=== PATIENT | female | born 1970 | race Hispanic/Latino ===

== ENCOUNTER 2018-06-14 16:35 | Emergency (ER) | payer BC ==
[2018-06-14 17:15] LABS: #Basophils 0.1 thou/uL (0.0-0.2); #Eosinphils 0.1 thou/uL (0.0-0.7); #Lymphocytes 2.2 thou/uL (1.20-3.40); #Monocytes 0.4 thou/uL (0.11-0.59); #Neutrophils 4.5 thou/uL (1.40-6.50); %Eosinophils 0.8 % (0.0-10.0); %Lymphocytes 30.6 % (21.0-51.0); %Monocytes 5.4 % (0.0-10.0); %Neutrophils 62.1 % (42.0-75.0); Mean Corpuscular HGB CONC 34.5 g/dL (32.0-36.0); Mean Corpuscular Hemoglobin 30.3 pg (27.0-31.0); Mean Corpuscular Volume 87.8 fL (78.0-98.0); Mean Platelet Volume 6.5 fL (7.4-10.4); Platelet Count 356 thou/uL (130-400); RBC Distribution Width 12.2 % (11.5-14.5); Red Blood Cell (RBC) Count 4.27 mill/uL (4.20-5.40); White Blood Cell (WBC) Count 7.2 thou/uL (4.8-10.8)
[2018-06-14 17:38] LABS: Bilirubin Small (Negative); Blood, Urine Negative (Negative); Clarity CLEAR (Clear); Glucose, Urine (Dipstick) Negative (Negative); Leukocyte Small (Negative); Nitrite Negative (Negative); Protein, Urine (Dipstick) Negative (Neg-Trace); Specific Gravity, Urine 1.027 (1.002-1.036); pH, Urine 6.5 (5.0-9.0)
[2018-06-14 17:39] LABS: Pregnancy Test - Urine (BHCG) Negative (Negative); Pregu Control Background? CLEAR/WHITE (CLR/WHITE); Pregu Control Bar Appear? YES (CONTROL BAR); Specific Gravity 1.027 (1.002-1.036)
[2018-06-14 17:40] LABS: Bacteria/HPF Rare-Few HPF (None Seen); Hyaline Casts/LPF 0-3 HYALINE CAST LPF (0-3 Hyaline); Pathc Cast-AUWi Flag 0.43 (0-2.49)
[2018-06-14 17:43] LABS: ALT (SGPT) 9 U/L (8-55); AST (SGOT) 13 U/L (5-34); Albumin 3.9 g/dL (3.5-5.0); Alkaline Phosphatase 102 U/L (40-150); Anion Gap 11 mmol/L (10-20); BUN (Urea Nitrogen) 13 mg/dL (7.0-18.7); Bilirubin, Total 0.3 mg/dL (0.2-1.2); Calc. Creatinine Clearance 0 mL/min (70-130); Calcium 8.5 mg/dL (7.8-10.44); Carbon Dioxide 25 mmol/L (22-29); Chloride 106 mmol/L (98-107); Estimated GFR-MDRD Greater than 90; Globulin 3.4 g/dL (2.4-3.5); Glucose 84 mg/dL (70-105); Lipase 19 U/L (8-78); Potassium 3.4 mmol/L (3.5-5.1); Protein, Total 7.3 g/dL (6.0-8.3); Sodium 139 mmol/L (136-145)
== END 2018-06-14 18:15 | disposition home or self-care (01) ==
LOC: ERS 16:35
DX: R10.9 Unspecified abdominal pain (principal)
CPT/HCPCS: 36415; 80053; 81003; 81015; 81025; 83690; 85025; 99284

== ENCOUNTER 2018-11-13 02:35 | Emergency (ER) | payer BC ==
[2018-11-13] MEDS ORDERED: Ketorolac Tromethamine 30 MG/ML VIAL ONE (02:41)
[2018-11-13 02:57] LABS: #Basophils 0.1 thou/uL (0.0-0.2); #Eosinphils 0.1 thou/uL (0.0-0.7); #Lymphocytes 2.6 thou/uL (1.20-3.40); #Monocytes 0.4 thou/uL (0.11-0.59); #Neutrophils 4.5 thou/uL (1.40-6.50); %Basophils 0.7 % (0.0-1.0); %Eosinophils 1.3 % (0.0-10.0); %Lymphocytes 34.3 % (21.0-51.0); %Monocytes 5.4 % (0.0-10.0); %Neutrophils 58.3 % (42.0-75.0); Hemoglobin 12.8 g/dL (12.0-16.0); Mean Corpuscular Hemoglobin 28.5 pg (27.0-31.0); Mean Corpuscular Volume 86.4 fL (78.0-98.0); Mean Platelet Volume 6.5 fL (7.4-10.4); Platelet Count 369 thou/uL (130-400); RBC Distribution Width 12.4 % (11.5-14.5); Red Blood Cell (RBC) Count 4.49 mill/uL (4.20-5.40); White Blood Cell (WBC) Count 7.6 thou/uL (4.8-10.8)
[2018-11-13 03:17] LABS: ALT (SGPT) 10 U/L (8-55); AST (SGOT) 14 U/L (5-34); Alkaline Phosphatase 111 U/L (40-150); Anion Gap 10 mmol/L (10-20); BUN (Urea Nitrogen) 12 mg/dL (7.0-18.7); Bilirubin, Total 0.6 mg/dL (0.2-1.2); Calc. Creatinine Clearance 0 mL/min (70-130); Calcium 9.2 mg/dL (7.8-10.44); Carbon Dioxide 26 mmol/L (22-29); Chloride 109 mmol/L (98-107); Estimated GFR-MDRD 86; Globulin 3.5 g/dL (2.4-3.5); Glucose 104 mg/dL (70-105); Potassium 3.1 mmol/L (3.5-5.1); Protein, Total 7.5 g/dL (6.0-8.3); Sodium 142 mmol/L (136-145)
[2018-11-13] MEDS ORDERED: Potassium Chloride 20 MEQ TAB ONE (03:29)
[2018-11-13 04:10] LABS: Bilirubin Negative (Negative); Blood, Urine Moderate (Negative); Clarity CLOUDY (Clear); Glucose, Urine (Dipstick) Negative (Negative); Leukocyte Negative (Negative); Nitrite Negative (Negative); Protein, Urine (Dipstick) Negative (Neg-Trace); Specific Gravity, Urine 1.021 (1.002-1.036); Urobilinogen 0.2 mg/dL (0.2-1.0)
[2018-11-13 04:13] LABS: Bacteria/HPF None Seen HPF (None Seen); Hyaline Casts/LPF 0-3 HYALINE CAST LPF (0-3 Hyaline); Pathc Cast-AUWi Flag 0.27 (0-2.49)
--- NOTE | 2018-11-13 07:25 | CT ---
CT ABDOMEN AND PELVIS NONCONTRAST: Date: 11/13/18 INDICATION: New onset right flank pain. Reference made to 03/30/12 CT exam. FINDINGS: There is a grossly stable in volume mixed density left adrenal mass approximately 2.1 cm. Finding has become more dense comparing to 03/30/12 exam, although has not significantly enlarged. There is evid ence of prior cholecystectomy. Heterogeneity of the unenhanced hepatic parenchyma could relate to a c omponent of hepatic steatosis. There is punctate, nonobstructing right nephrolithiasis. No free air. There is a ventral fat-containing umbilical hernia. A small cyst of the anterior right hemipelvis may relate to an adnexal cyst, although is incompletely characterized. No acute osseous abnormality. IMPRESSION: 1. Non-obstructive punctate right nephrolithiasis. 2. Stable sized left adrenal mass from 2012 exam, favoring benign process. 3. Hypodensity of the anterior right hemipelvis may relate to an ovarian cyst, which is incompletely evaluated. This measures 2.4 cm in diameter. Recommend pelvic ultrasound to further evaluate, given patient's age. POS: [id number]
== END 2018-11-13 04:32 | disposition home or self-care (01) ==
LOC: ERS 02:35
DX: N20.0 Calculus of kidney (principal); Z87.442 Personal history of urinary calculi
CPT/HCPCS: 74176; 80053; 81003; 81015; 85025; 96361; 96374; J1885

== ENCOUNTER 2018-12-21 04:07 | Emergency (ER) | payer BC ==
[2018-12-21] MEDS ORDERED: Ketorolac Tromethamine 30 MG/ML VIAL ONE (04:21)
[2018-12-21 04:39] LABS: #Basophils 0.1 thou/uL (0.0-0.2); #Lymphocytes 2.9 thou/uL (1.20-3.40); #Monocytes 0.4 thou/uL (0.11-0.59); #Neutrophils 5.6 thou/uL (1.40-6.50); %Basophils 0.6 % (0.0-1.0); %Eosinophils 0.4 % (0.0-10.0); %Lymphocytes 32.1 % (21.0-51.0); %Monocytes 4.7 % (0.0-10.0); %Neutrophils 62.2 % (42.0-75.0); Hemoglobin 12.5 g/dL (12.0-16.0); Mean Corpuscular Hemoglobin 27.6 pg (27.0-31.0); Mean Corpuscular Volume 86.1 fL (78.0-98.0); Mean Platelet Volume 6.2 fL (7.4-10.4); Platelet Count 357 thou/uL (130-400); RBC Distribution Width 12.9 % (11.5-14.5); Red Blood Cell (RBC) Count 4.53 mill/uL (4.20-5.40)
[2018-12-21 04:40] LABS: Pregnancy Test - Urine (BHCG) Negative (Negative); Pregu Control Background? CLEAR/WHITE (CLR/WHITE); Pregu Control Bar Appear? YES (CONTROL BAR); Specific Gravity 1.027 (1.002-1.036)
[2018-12-21 04:43] LABS: Bacteria/HPF None Seen HPF (None Seen); Bilirubin Negative (Negative); Blood, Urine 3+ (Negative); Clarity Clear (Clear); Glucose, Urine (Dipstick) Normal (Negative); Leukocyte Negative Leu/uL (Negative); Mucous/LPF 4+ LPF (<2+); Nitrite Negative (Negative); Protein, Urine (Dipstick) 10 mg/dL (Neg-Trace); RBC/HPF Greater than 50 HPF (0-3); WBC/HPF 0-3 HPF (0-3)
[2018-12-21 05:01] LABS: ALT (SGPT) 7 U/L (8-55); AST (SGOT) 12 U/L (5-34); Albumin 3.9 g/dL (3.5-5.0); Alkaline Phosphatase 106 U/L (40-150); Anion Gap 11 mmol/L (10-20); BUN (Urea Nitrogen) 15 mg/dL (7.0-18.7); Bilirubin, Total 0.5 mg/dL (0.2-1.2); Calc. Creatinine Clearance 0 mL/min (70-130); Carbon Dioxide 24 mmol/L (22-29); Chloride 108 mmol/L (98-107); Estimated GFR-MDRD 87; Globulin 3.3 g/dL (2.4-3.5); Glucose 88 mg/dL (70-105); Potassium 3.8 mmol/L (3.5-5.1); Protein, Total 7.2 g/dL (6.0-8.3); Sodium 139 mmol/L (136-145)
--- NOTE | 2018-12-21 08:13 | ULT ---
PELVIC ULTRASOUND WITH GRAF SCALE AND DOPPLER COLOR FLOW IMAGING: COMPARISON: Comparison is made to recent CT exam November 13, 2018. CLINICAL HISTORY: Pelvic pain. FINDINGS: The uterus is surgically absent. The left ovary is not visualized. Within the right adnexa, there i s a lobular hypoechoic focus measuring up to approximately 3.3 cm in diameter. No significant international account manager al flow is seen by Doppler evaluation. Appearing separate from this finding there is right ovarian s troma which does contain flow by Doppler evaluation. The ovary measures approximately 2 cm. No free pelvic fluid. IMPRESSION: Right adnexal cystic structures up to approximately 3.3 cm. This appears separate from the adjacent right ovary by sonographic imaging. Recommend a 6-week followup pelvic ultrasound for continued asse ssment. CODE T POS: [id number]
== END 2018-12-21 07:20 | disposition home or self-care (01) ==
LOC: ERS 04:07
DX: N83.201 Unspecified ovarian cyst, right side (principal)
CPT/HCPCS: 36415; 76856; 80053; 81003; 81015; 81025; 85025; 96374; J1885

== ENCOUNTER 2020-11-14 12:40 | Day surgery (SDC) | payer BC ==
[2020-11-14] MEDS ORDERED: Ferumoxytol (NON ERSD) 510 MG in Sodium Chloride 0.9% 150 ML IVPB SCH (13:00)
[2020-11-14 13:14] VITALS: BP 103/54
== END 2020-11-14 15:31 | disposition home or self-care (01) ==
LOC: ONC/OP 12:40
PROVIDERS: ATTEND Family Medicine
DX: D50.0 Iron deficiency anemia secondary to blood loss (chronic) (principal); Z80.0 Family history of malignant neoplasm of digestive organs
CPT/HCPCS: 96365; J3490; Q0138

== ENCOUNTER → 2020-11-14 | Day surgery (SDC) | payer BC | LOC: ER/OP 10:42 → ERS 10:42 → EDSTATUS 15:33 | DX: D50.9 Iron deficiency anemia, unspecified (principal); Z80.0 Family history of malignant neoplasm of digestive organs ==

== ENCOUNTER 2021-02-18 15:50 | Outpatient (CLI) | payer BC | END 2021-02-18 15:51 | disposition home or self-care (01) | LOC: BICRAD 15:50 | PROVIDERS: ATTEND Family Medicine | DX: D50.9 Iron deficiency anemia, unspecified (principal) | CPT/HCPCS: 71046 ==

== ENCOUNTER 2021-09-04 09:30 | Inpatient (IN) | payer OTHER ==
[2021-09-04 11:12] VITALS: BMI 35.1
[2021-09-09] MEDS ORDERED: Levofloxacin 500 mg/D5W 100 ml Premix Bag ONE (06:14)
[2021-09-09] MEDS ORDERED: metroNIDAZOLE 500 MG in Premix Bag 1 BAG IVPB SCH (06:30)
[2021-09-09] MEDS ORDERED: Famotidine/PF 20 mg/2ml Vial ONE (06:47)
[2021-09-09] MEDS ORDERED: Fentanyl 100 MCG/2 ML VIAL ONE ×3 (06:47→10:56)
[2021-09-09] MEDS ORDERED: Bupivacaine 0.25% 10 ML VIAL ONE (06:54)
[2021-09-09] MEDS ORDERED: Lidocaine 1% w/Epinephrine 1:100K 20 ML VIAL ONE (06:54)
[2021-09-09] MEDS ORDERED: Midazolam HCl 2 mg/2 ml Vial ONE (07:14)
[2021-09-09] MEDS ORDERED: Rocuronium Bromide 10 MG/ML (10ML VIAL) ONE (07:18)
[2021-09-09] MEDS ORDERED: Ketorolac Tromethamine 30 MG/ML VIAL ONE (07:18)
[2021-09-09] MEDS ORDERED: Dexamethasone 20 MG/5 ML VIAL ONE (07:18)
[2021-09-09] MEDS ORDERED: Lidocaine 1% PF 5 ML VIAL ONE (07:18)
[2021-09-09] MEDS ORDERED: PROPOFOL 200 MG/20 ML VIAL ONE (07:18)
[2021-09-09] MEDS ORDERED: Ondansetron PF 4 MG/2 ML Vial ONE (07:18)
[2021-09-09] MEDS ORDERED: Bupivacaine HCl 0.5%/Epinephrine 1:200,000/PF 30 ml Vial ONE (07:18)
[2021-09-09] MEDS ORDERED: SUGAMMADEX SODIUM 200 MG/2 ML VIAL ONE (07:42)
[2021-09-09] MEDS ORDERED: HYDROmorphone 2 MG/ML VIAL SLOW IVP PRN (09:07)
[2021-09-09] MEDS ORDERED: Meperidine HCl/PF 25 MG/ML VIAL SLOW IVP PRN (09:07)
[2021-09-09] MEDS ORDERED: Promethazine HCl 25 MG/ML VIAL IVPB PRN (09:07)
[2021-09-09] MEDS ORDERED: Promethazine HCl 25 MG/ML VIAL IM PRN ×2 (09:07→10:01)
[2021-09-09] MEDS ORDERED: Ondansetron PF 4 MG/2 ML Vial IVP PRN (10:01)
[2021-09-09] MEDS ORDERED: hydrALAZINE 20 MG/ML VIAL SLOW IVP PRN (10:01)
[2021-09-09] MEDS ORDERED: D5 1/2 NS w/20 mEq KCL 1,000 ML ONE (11:31)
[2021-09-09] MEDS: Morphine 4 MG/ML VIAL SLOW IVP PRN ×3 (13:04→22:32)
[2021-09-09] MEDS: D5 1/2 NS w/20 mEq KCL 1,000 ML IV SCH ×2 (17:54→20:18)
[2021-09-09] MEDS: Iron, Sodium Ferric Gluconate 250 MG in Sodium Chloride 0.9% 250 ML 250 ML IVPB SCH (20:17)
[2021-09-09] MEDS: Famotidine 20 MG TAB PO SCH (20:17)
[2021-09-09] MEDS: Famotidine/PF 20 mg/2ml Vial SLOW IVP SCH (20:28)
[2021-09-10] MEDS: Morphine 4 MG/ML VIAL SLOW IVP PRN ×3 (04:38→21:30)
[2021-09-10] MEDS: D5 1/2 NS w/20 mEq KCL 1,000 ML IV SCH ×3 (04:44→21:49)
[2021-09-10 06:06] LABS: #Monocytes 0.5 thou/uL (0.11-0.59); #Neutrophils 13.6 thou/uL (1.40-6.50); %Basophils 0.1 % (0.0-1.0); %Eosinophils 0.1 % (0.0-10.0); %Lymphocytes 6.3 % (21.0-51.0); %Monocytes 3.5 % (0.0-10.0); %Neutrophils 90.1 % (42.0-75.0); Mean Corpuscular HGB CONC 29.9 g/dL (32.0-36.0); Mean Corpuscular Hemoglobin 22.7 pg (27.0-31.0); Mean Corpuscular Volume 75.9 fL (78.0-98.0); Platelet Count 407 thou/uL (130-400); RBC Distribution Width 15.4 % (11.5-14.5); Red Blood Cell (RBC) Count 4.42 mill/uL (4.20-5.40); White Blood Cell (WBC) Count 15.1 thou/uL (4.8-10.8)
[2021-09-10 06:31] LABS: Anion Gap 11 mmol/L (10-20); BUN (Urea Nitrogen) 5 mg/dL (9.8-20.1); Calc. Creatinine Clearance 120 mL/min (70-130); Calcium 8.5 mg/dL (7.8-10.44); Carbon Dioxide 21 mmol/L (22-29); Chloride 108 mmol/L (98-107); Glucose 132 mg/dL (70-105); Potassium 4.2 mmol/L (3.5-5.1); Sodium 136 mmol/L (136-145)
[2021-09-10] MEDS: Enoxaparin Sodium 40 MG/0.4 ML SYRINGE SC SCH (09:52)
[2021-09-10] MEDS: Famotidine 20 MG TAB PO SCH ×2 (09:52→21:16)
[2021-09-10] MEDS: Famotidine/PF 20 mg/2ml Vial SLOW IVP SCH ×2 (09:52→21:49)
[2021-09-10] MEDS: HYDROcodone/Acetaminophen 7.5/325 mg Tablet PO PRN ×3 (13:50→21:15)
[2021-09-10] MEDS: Iron, Sodium Ferric Gluconate 250 MG in Sodium Chloride 0.9% 250 ML 250 ML IVPB SCH (17:45)
[2021-09-11] MEDS: HYDROcodone/Acetaminophen 7.5/325 mg Tablet PO PRN ×4 (02:00→20:38)
[2021-09-11] MEDS: D5 1/2 NS w/20 mEq KCL 1,000 ML IV SCH ×4 (04:49→20:39)
[2021-09-11] MEDS: Famotidine 20 MG TAB PO SCH ×2 (09:46→20:38)
[2021-09-11] MEDS: Enoxaparin Sodium 40 MG/0.4 ML SYRINGE SC SCH (09:46)
[2021-09-11] MEDS ORDERED: Bisacodyl 10 MG SUPP PR PRN (10:12)
[2021-09-11] MEDS: Famotidine/PF 20 mg/2ml Vial SLOW IVP SCH ×2 (11:08→21:32)
[2021-09-12] MEDS: HYDROcodone/Acetaminophen 7.5/325 mg Tablet PO PRN ×2 (05:07→11:34)
[2021-09-12] MEDS: D5 1/2 NS w/20 mEq KCL 1,000 ML IV SCH ×2 (05:08→14:32)
[2021-09-12] MEDS: Enoxaparin Sodium 40 MG/0.4 ML SYRINGE SC SCH (09:04)
[2021-09-12] MEDS: Famotidine 20 MG TAB PO SCH (09:08)
[2021-09-12] MEDS: Famotidine/PF 20 mg/2ml Vial SLOW IVP SCH (09:09)
[2021-09-12] MEDS ORDERED: Nystatin Powder 15 GM BOT TOP PRN (10:41)
[2021-09-12 11:50] VITALS: BP 123/82; TEMP 98.2
== END 2021-09-12 14:15 | disposition home or self-care (01) | DRG 357 ==
LOC: SURG A 09-09 06:02
PROVIDERS: ADMIT Surgery; ATTEND Surgery
PROC: 0WJG4ZZ Inspection of Peritoneal Cavity, Percutaneous Endoscopic Approach (ICD-10-PCS; principal; 2021-09-09)
PROC: 0DJD8ZZ Inspection of Lower Intestinal Tract, Via Natural or Artificial Opening Endoscopic (ICD-10-PCS; 2021-09-09)
DX: C20 Malignant neoplasm of rectum (principal); K91.89 Other postprocedural complications and disorders of digestive system; K56.7 Ileus, unspecified; E66.9 Obesity, unspecified; D50.9 Iron deficiency anemia, unspecified; K63.5 Polyp of colon; Z53.8 Procedure and treatment not carried out for other reasons; Y83.8 Other surgical procedures as the cause of abnormal reaction of the patient, or of later complication, without mention of misadventure at the time of the procedure; Z90.710 Acquired absence of both cervix and uterus; Z98.84 Bariatric surgery status; Z90.49 Acquired absence of other specified parts of digestive tract; Z88.0 Allergy status to penicillin; Z68.35 Body mass index [BMI] 35.0-35.9, adult
CPT/HCPCS: 36415; 36416; 71260; 72197; 74018; 80048; 85025; J1100; J1650; J1885; J1956; J2250; J2270; J2405; J2704; J2916; J3010; J3480; J7050; S0020; S0028

== ENCOUNTER 2021-10-14 07:41 | Outpatient (CLI) | payer OTHER ==
[2021-10-14] MEDS ORDERED: Iopamidol 370 76% 100 ML VIAL ONE (09:19)
== END 2021-10-14 07:42 | disposition home or self-care (01) ==
LOC: CT 07:41
PROVIDERS: ATTEND Surgery
DX: C20 Malignant neoplasm of rectum (principal); D12.0 Benign neoplasm of cecum; E27.9 Disorder of adrenal gland, unspecified; K76.9 Liver disease, unspecified
CPT/HCPCS: 74177

== ENCOUNTER 2022-07-04 07:57 | Outpatient (CLI) | payer OTHER ==
[2022-07-04] MEDS ORDERED: Iopamidol-370 76% 500 ML 1 ML ONE (15:43)
== END 2022-07-04 07:58 | disposition home or self-care (01) ==
LOC: BICCT 07:57
PROVIDERS: ATTEND Internal Medicine Hematology & Oncology
DX: C19 Malignant neoplasm of rectosigmoid junction (principal); K76.89 Other specified diseases of liver; E27.8 Other specified disorders of adrenal gland
CPT/HCPCS: 71260; 74177

== ENCOUNTER 2023-05-06 07:53 | Outpatient (CLI) | payer OTHER ==
[2023-05-06] MEDS ORDERED: Iopamidol 370 76% 100 ML VIAL ONE (08:55)
== END 2023-05-06 07:54 | disposition home or self-care (01) ==
LOC: BICCT 07:53
PROVIDERS: ATTEND Internal Medicine Hematology & Oncology
DX: C20 Malignant neoplasm of rectum (principal); R91.1 Solitary pulmonary nodule; E27.8 Other specified disorders of adrenal gland; K76.0 Fatty (change of) liver, not elsewhere classified; Z90.49 Acquired absence of other specified parts of digestive tract; Z90.710 Acquired absence of both cervix and uterus
CPT/HCPCS: 71260; 74177

== ENCOUNTER 2023-08-07 09:12 | Day surgery (SDC) | payer OTHER ==
[2023-08-07] MEDS: Acetaminophen 500 MG TAB PO SCH (10:09)
[2023-08-07] MEDS ORDERED: Acetaminophen 500 MG TAB ONE (10:09)
[2023-08-07] MEDS: diphenhydrAMINE 25 MG CAP PO SCH (10:09)
[2023-08-07] MEDS ORDERED: diphenhydrAMINE 25 MG CAP ONE (10:09)
[2023-08-07 13:04] VITALS: BP 114/52; TEMP 98.2
== END 2023-08-07 13:16 | disposition home or self-care (01) ==
LOC: ONC/OP 09:12
PROVIDERS: ATTEND Internal Medicine Hematology & Oncology
DX: D64.9 Anemia, unspecified (principal); D69.6 Thrombocytopenia, unspecified
CPT/HCPCS: 36430; 86850; 86900; 86901; P9016

== ENCOUNTER → 2023-08-31 | Day surgery (SDC) | payer OTHER ==
[~2023-08-31] MED LIST: Lidocaine 1% PF 5 ML VIAL ONE; Lidocaine 1% w/Epinephrine 1:100K 20 ML VIAL ONE; Midazolam HCl 2 mg/2 ml Vial ONE; Sodium Bicarbonate 2.5 MEQ/5 ML SDV ONE; fentaNYL 50 mcg/mL 1 mL Vial ONE
[2023-08-31 09:07] VITALS: BMI 42.5
[2023-08-31 09:41] LABS: INR-International Normal Ratio 1.1; Prothrombin Time 14.7 sec (12.0-14.7)
[2023-08-31 09:42] LABS: PTT 30.7 sec (22.9-36.1)
== END ==
LOC: CT 08:13
PROVIDERS: ATTEND Internal Medicine Hematology & Oncology
PROC: 079T3ZX Drainage of Bone Marrow, Percutaneous Approach, Diagnostic (ICD-10-PCS; principal; 2023-08-31)
DX: C19 Malignant neoplasm of rectosigmoid junction (principal); D50.0 Iron deficiency anemia secondary to blood loss (chronic); D61.818 Other pancytopenia; F41.9 Anxiety disorder, unspecified; Z79.899 Other long term (current) drug therapy; Z88.0 Allergy status to penicillin
CPT/HCPCS: 38222; 77012; 85097; 85610; 85730; 88184; 88237; 88305; 88311; 88313; 88342; 99152; J2250; J3010

== ENCOUNTER 2023-10-29 11:38 | Day surgery (SDC) | payer OTHER ==
[2023-10-29] MEDS ORDERED: diphenhydrAMINE 25 MG CAP PO SCH (12:15)
[2023-10-29] MEDS: Acetaminophen 500 MG TAB PO SCH (12:52)
[2023-10-29] MEDS: Acetaminophen 500 MG TAB ONE (13:24)
[2023-10-29 17:16] VITALS: BP 105/87; TEMP 98.1
== END 2023-10-29 17:31 | disposition home or self-care (01) ==
LOC: ONC/OP 11:38
PROVIDERS: ATTEND Internal Medicine Hematology & Oncology
DX: D64.9 Anemia, unspecified (principal); D69.6 Thrombocytopenia, unspecified
CPT/HCPCS: 36430; 86850; 86900; 86901; P9016

== ENCOUNTER 2023-11-27 11:53 | Day surgery (SDC) | payer OTHER ==
[2023-11-27] MEDS ORDERED: diphenhydrAMINE 25 MG CAP PO SCH (12:15)
[2023-11-27] MEDS ORDERED: Acetaminophen 500 MG TAB ONE (12:43)
[2023-11-27] MEDS: Acetaminophen 500 MG TAB PO SCH (12:44)
[2023-11-27 15:56] VITALS: BP 102/53; TEMP 98.2
== END 2023-11-27 16:06 | disposition home or self-care (01) ==
LOC: ONC/OP 11:53
PROVIDERS: ATTEND Internal Medicine Hematology & Oncology
DX: D64.9 Anemia, unspecified (principal); D69.6 Thrombocytopenia, unspecified; Z88.0 Allergy status to penicillin
CPT/HCPCS: 36430; 86850; 86900; 86901; P9016

== ENCOUNTER 2023-12-04 10:08 | Day surgery (SDC) | payer OTHER ==
[2023-12-04] MEDS ORDERED: diphenhydrAMINE 25 MG CAP PO SCH (10:30)
[2023-12-04] MEDS ORDERED: Acetaminophen 500 MG TAB ONE (11:14)
[2023-12-04] MEDS: Acetaminophen 500 MG TAB PO SCH (11:15)
[2023-12-04 12:10] VITALS: TEMP 97.8
[2023-12-04 14:35] VITALS: BP 114/63
== END 2023-12-04 14:36 | disposition home or self-care (01) ==
LOC: ONC/OP 10:08
PROVIDERS: ATTEND Internal Medicine Hematology & Oncology
DX: D64.9 Anemia, unspecified (principal); D69.6 Thrombocytopenia, unspecified; Z88.0 Allergy status to penicillin
CPT/HCPCS: 36430; 86850; 86900; 86901; P9016

== ENCOUNTER 2023-12-11 13:04 | Day surgery (SDC) | payer OTHER ==
[2023-12-11] MEDS ORDERED: diphenhydrAMINE 25 MG CAP ONE (14:00)
[2023-12-11] MEDS ORDERED: Acetaminophen 500 MG TAB ONE (14:00)
[2023-12-11] MEDS: diphenhydrAMINE 25 MG CAP PO SCH (14:01)
[2023-12-11] MEDS: Acetaminophen 500 MG TAB PO SCH (14:01)
[2023-12-11 15:47] VITALS: BP 120/69; TEMP 97.9
== END 2023-12-11 15:48 | disposition home or self-care (01) ==
LOC: ONC/OP 13:04
PROVIDERS: ATTEND Internal Medicine Hematology & Oncology
DX: D64.9 Anemia, unspecified (principal); D69.6 Thrombocytopenia, unspecified; Z88.0 Allergy status to penicillin
CPT/HCPCS: 36430; 86850; 86900; 86901; P9035

== ENCOUNTER 2024-06-29 01:33 | Emergency (ER) | payer OTHER | END 2024-06-29 03:20 | disposition home or self-care (01) | LOC: ERS 01:33 | DX: R04.0 Epistaxis (principal) | CPT/HCPCS: 99282 ==

== ENCOUNTER 2025-02-28 19:33 | Emergency (ER) | payer OTHER ==
[~2025-02-28 19:33] MED LIST changes: +Iopamidol-370 76% 500 ML MDV (1 ML CHARGE) ONE; -Lidocaine 1% PF 5 ML VIAL ONE; -Lidocaine 1% w/Epinephrine 1:100K 20 ML VIAL ONE; -Midazolam HCl 2 mg/2 ml Vial ONE; -Sodium Bicarbonate 2.5 MEQ/5 ML SDV ONE; -fentaNYL 50 mcg/mL 1 mL Vial ONE
[2025-02-28] MEDS ORDERED: Dextrose 50% Abboject 50 ML SYRINGE ONE (19:40)
[2025-02-28] MEDS ORDERED: Cefepime 2 GM VIAL ONE (19:45)
[2025-02-28] MEDS ORDERED: Hydrocortisone Sod Succ/PF 100 mg/2 ml Vial ONE (19:45)
[2025-02-28 20:11] LABS: INR-International Normal Ratio 2.2; Prothrombin Time 24.9 sec (12.0-14.7)
[2025-02-28 20:12] LABS: ALT (SGPT) 9 U/L (Less than 34); AST (SGOT) 32 U/L (11-34); Albumin 1.5 g/dL (3.1-4.5); Alkaline Phosphatase 262 U/L (40-110); Anion Gap 22 mmol/L (10-20); BUN (Urea Nitrogen) 21 mg/dL (9.8-20.1); Bilirubin, Total 2.7 mg/dL (0.3-1.2); Calc. Creatinine Clearance 0 mL/min (70-130); Calcium 7.8 mg/dL (7.8-10.44); Carbon Dioxide 19 mmol/L (22-29); Chloride 96 mmol/L (98-107); Globulin 2.8 g/dL (2.4-3.5); Glucose 105 mg/dL (70-105); Lipase 12 U/L (8-78); PTT 51.7 sec (22.9-36.1); Potassium 3.9 mmol/L (3.5-5.1); Sodium 133 mmol/L (136-145)
[2025-02-28 20:13] LABS: Base Excess -16.8 mEq/L (-2.0 to +3.0); Chloride (VBG) 127 mmol/L (98-106); Hematocrit-VBG 10 % (36.0-47.0); Sodium 140 mmol/L (133-146)
[2025-02-28 20:20] LABS: Hematocrit 27.5 % (36.0-47.0); Hemoglobin 8.8 g/dL (12.0-16.0); Mean Corpuscular Hemoglobin 31.4 pg (27.0-31.0); Mean Corpuscular Volume 98.2 fL (78.0-98.0); Platelet Count 13 10x3/uL (130-400); Red Blood Cell (RBC) Count 2.80 mill/uL (4.20-5.40); White Blood Cell (WBC) Count 4.55 10x3/uL (4.8-10.8)
[2025-02-28] MEDS ORDERED: Vancomycin 1.5 GM / NS 500ML VIAL-2-BAG IVPB SCH (20:30)
[2025-02-28 20:34] LABS: Anisocytosis SLIGHT = 6-15 cells HPF (0-5); Burr Cells SLIGHT = 2-5 cells HPF (0-1); Nucleated RBC (Manual Ct) 2 % (0); Platelet Adequacy Comment Significant Decrease; Polychromasia SLIGHT = 2-3 cells HPF (0-2); Schistocytes SLIGHT = 2-5 cells HPF (0-1); Smudge Cells 8.4 %; Target Cells SLIGHT = 2-5 cells HPF (0-1); Toxic Granulation SLIGHT
[2025-02-28 20:53] LABS: Bacteria/HPF 4+ HPF (None Seen); CAUTI Indications for Culture Alt mental st,lethar; Glucose, Urine (Dipstick) Normal (Negative); Leukocyte 250 Leu/uL (Negative); Protein, Urine (Dipstick) 50 mg/dL (Neg-Trace); RBC/HPF 0-3 HPF (0-3); Specific Gravity, Urine 1.022 (1.002-1.036); WBC/HPF 21-50 HPF (0-3)
[2025-02-28 21:01] LABS: Urine Culture Reflex Yes Yes
[2025-03-01 08:09] LABS: Actual Bicarbonate (HCO3v) 8.3 mEq/L (22-28)
[2025-03-01 08:10] LABS: Calcium, Ionized (venous) 0.51 mmol/L (1.16-1.32); Hemoglobin (Hb) 3.5 g/dL (11.7-16.0); Potassium (VBG) 1.49 mmol/L (3.70-5.30)
== END 2025-03-01 01:48 | disposition short-term general hospital (02) ==
LOC: ERS 19:33
DX: A41.9 Sepsis, unspecified organism (principal); N39.0 Urinary tract infection, site not specified; D69.6 Thrombocytopenia, unspecified
CPT/HCPCS: 71045; 74177; 80053; 81001; 82805; 82962; 83605; 83690; 83880; 84484; 85025; 85610; 85730; 87040; 87086; 93005; 94760; J0692; J1720; J7030; J7999; 36416; 51701; 87077; 87149; 87186; 96361; 96365; 96367; 96375; Q9967